=== PATIENT | male | born 1955 | race Caucasian/White ===

== ENCOUNTER 2018-09-28 06:20 | Day surgery (SDC) | payer OTHER ==
[2018-09-27 14:36] VITALS: BP 142/84
[~2018-09-28] VITALS: Ht 182.9 cm; Wt 96.1 kg
[2018-09-28] VITALS (18 sets, daily range): BP systolic 126–143; BP diastolic 70–89
[~2018-09-28 06:20] MED LIST: ATORVASTATIN PO; BISOPROLOL PO; TRAM50TA4 PO
[2018-09-28] MEDS ORDERED: LACTATED RINGERS 1000ML 1,000 ML IV ONE (06:46)
[2018-09-28] MEDS ORDERED: CEFAZOLIN SODIUM 1 GM VIAL ONE ×2 (06:46→09:03)
[2018-09-28] MEDS: CEFAZOLIN SODIUM 1 GM VIAL IVP ONE ×2 (06:54→09:55)
[2018-09-28] MEDS ORDERED: DEXAMETHASONE SOD PHOSPHATE 10MG/ML 1ML VIAL ONE (07:09)
[2018-09-28] MEDS ORDERED: SUCCINYLCHOLINE 200MG/10ML SYR ONE ×2 (07:10→08:51)
[2018-09-28] MEDS ORDERED: LIDOCAINE PF 2% 5ML ABBOJECT ONE ×2 (07:10→10:24)
[2018-09-28] MEDS ORDERED: GLYCOPYRROLATE 1 MG/5 ML SYRINGE ONE (07:12)
[2018-09-28] MEDS ORDERED: NEOSTIGMINE 5MG/5ML SYR IV ONE (07:12)
[2018-09-28] MEDS ORDERED: ROCURONIUM 10MG/1ML SYR 10 MG/ML ML ONE (07:12)
[2018-09-28] MEDS ORDERED: PROPOFOL 10 MG/ML 20ML VIAL IV ONE ×2 (07:12→10:24)
[2018-09-28] MEDS ORDERED: MIDAZOLAM HCL 1 MG/ML 2ML VIAL ONE (07:12)
[2018-09-28] MEDS ORDERED: ONDANSETRON HCL 4 MG/2 ML VIAL ONE (07:12)
[2018-09-28] MEDS ORDERED: FENTANYL CITRATE PF 50 MCG/1 ML 2ML VIAL ONE ×2 (07:13→08:52)
[2018-09-28] MEDS ORDERED: ROPIVACAINE 0.5% 5MG/ML 30ML IJ ONE (08:43)
[2018-09-28] MEDS ORDERED: LIDOCAINE HCL 4% LTA SOL 4 ML VIAL ONE (08:49)
[2018-09-28] MEDS ORDERED: LIDOCAINE HCL 2% JELLY 5 ML ONE (08:50)
[2018-09-28] MEDS ORDERED: EPHEDRINE SULFATE 50 MG/ML AMPULE ONE (10:08)
[2018-09-28] MEDS ORDERED: LIDOCAINE HCL MPF 1% 5ML VIAL ONE (10:21)
[2018-09-28] MEDS ORDERED: CEPH500B PO (10:53)
[2018-09-28] MEDS ORDERED: NAPR-1023 PO (10:53)
[2018-09-28] MEDS ORDERED: TYL3 PO (10:53)
[2018-09-28] MEDS ORDERED: KETOROLAC TROMETHAMINE 30MG/ML ONE (11:27)
--- NOTE | 2018-09-28 12:00 | NUR ---
RECEIVED AWAKE ALERT ,NO COMPLAINTS,,,,LT ARM WITH JORGE BANDAGE INTACT WITH FINGERS EXPOSED WARM TO TOUCH ABLE TO WIGGLE FINGERS ,CAPILLARY REFILL ,,
--- NOTE | 2018-09-28 12:45 | NUR ---
SLING APPLIED TO LT ARM,INSTRUCTED HOW TO CHECK FOR CAPILLARY REFILL,,AND KEEP ELEVATED AT ALL TIMES AND WHEN AMBULATES TO WEAR SLING ,VERBALIZES UNDERSTANDING,,WAITING FOR SON TO TAKE HIM HOME
--- NOTE | 2018-09-28 13:36 | NUR ---
TO CAR VIA W/C ,,,WITH SLING IN PLACE ,ABLE TO WIGGLE FINGERS ,WARM TO TOUCH,NO SWELLING NOTED,VERBALIZES UNDERSTANDING ON HOW TO CHECK FOR CIRCULATION Addendum: 09/28/18 at 1546 by MOON GALICIA LVN LVN TIME OF DISCHARGE WAS 1330
== END 2018-09-28 13:30 | disposition home or self-care (01) ==
LOC: DAH 06:20
PROVIDERS: ATTEND Orthopaedic Surgery
DX: G56.02 Carpal tunnel syndrome, left upper limb (principal); I10 Essential (primary) hypertension; E78.5 Hyperlipidemia, unspecified; M54.5 Low back pain; Z68.30 Body mass index [BMI] 30.0-30.9, adult; G40.89 Other seizures; Z98.890 Other specified postprocedural states; Z79.899 Other long term (current) drug therapy; Z82.49 Family history of ischemic heart disease and other diseases of the circulatory system
CPT/HCPCS: 64721; A4215; A4218; A4649; A4930; A6223; J0330 ×2; J0690 ×2; J1100; J1885; J2001 ×2; J2250; J2405; J2704 ×2; J2710; J2795; J3010 ×2; J3490 ×3; J7120

== ENCOUNTER → 2020-11-20 | Outpatient (CLI) | payer MEDICARE ==
[~2020-11-20] MED LIST changes: +CEPH500B PO; +NAPR-1023 PO; -TRAM50TA4 PO; +TYL3 PO
== END | disposition home or self-care (01) ==
LOC: RAH 11-16 14:36
PROVIDERS: ATTEND Internal Medicine
DX: M47.812 Spondylosis without myelopathy or radiculopathy, cervical region (principal); M48.02 Spinal stenosis, cervical region; M50.31 Other cervical disc degeneration, high cervical region
CPT/HCPCS: 72141

== ENCOUNTER 2021-01-10 22:21 | Observation (INO) | payer MEDICARE ==
[~2021-01-10] VITALS: Ht 182.9 cm; Wt 87.5 kg
[2021-01-10 23:08] LABS: APPEARANCE,URINE Clear (CLEAR); BILIRUBIN,URINE Negative (NEGATIVE); COLOR,URINE Yellow (YELLOW); GLUCOSE, URINE (UA) Negative (NEGATIVE); KETONES,URINE 15 mg/dL (NEGATIVE); LEUKOCYTE ESTERASE ,URINE Negative (NEGATIVE); NITRATE,URINE Negative (NEGATIVE); OCCULT BLOOD,URINE Negative (NEGATIVE); PH,URINE 5.5 (5.0-8.0); PROTEIN,URINE POS 2+ mg/dL (NEGATIVE)
[2021-01-10 23:23] LABS: BASOPHILS % (AUTO) 0.1 % (0.0-5.0); EOSINOPHILS % (AUTO) 1.1 % (0.0-8.0); HEMATOCRIT 40.5 % (42-54); LYMPHOCYTES % (AUTO) 19.6 % (21.0-51.0); MEAN CORPUSCULAR HGB CONC 32.8 g/dL (32.0-36.0); MEAN CORPUSCULAR VOLUME 91.4 fL (79-99); MONOCYTES % (AUTO) 14.2 % (3.0-13.0); NEUTROPHILS % (AUTO) 64.7 % (40.0-77.0); PLATELET COUNT (AUTO) 196 K/uL (130-400); RED BLOOD CELL COUNT(AUTO) 4.43 MIL/uL (4.50-6.20); RED CELL DISTRIBUTION WIDTH 12.9 % (11.0-15.5); WHITE BLOOD COUNT (AUTO) 7.3 K/uL (4.8-10.8)
[2021-01-10] MEDS ORDERED: MECLIZINE HCL 25 MG TABLET ONE (23:25)
[2021-01-10] MEDS ORDERED: ONDANSETRON HCL 4 MG/2 ML VIAL ONE (23:26)
[2021-01-10] MEDS ORDERED: CYCLOBENZAPRINE HCL 10 MG TABLET ONE (23:26)
[2021-01-10] MEDS ORDERED: HYDROCODONE/ACETAMINOPHEN 10/325 MG TAB ONE (23:27)
[2021-01-10 23:30] LABS: POTASSIUM 3.5 mmol/L (3.5-5.1)
[2021-01-10 23:39] LABS: ALBUMIN 3.8 g/dL (3.5-5.0); BILIRUBIN,TOTAL 0.5 mg/dL (0.2-1.0); TOTAL PROTEIN, SERUM 7.8 g/dL (6.0-8.3)
[2021-01-11 00:20] LABS: CRP QUANTITATIVE 6.1 mg/L (0.00-9.0); MAGNESIUM 1.9 mg/dL (1.80-2.40)
[2021-01-11] MEDS ORDERED: IOHEXOL-350 50ML VIAL IV ONE (09:43)
[2021-01-11 17:00] VITALS: BP 130/75
[2021-01-11] MEDS ORDERED: ATOR10 PO (17:03)
[2021-01-11] MEDS ORDERED: METF-444 PO (17:03)
[2021-01-11] MEDS ORDERED: BISO5POW MC (17:03)
[2021-01-11 19:25] VITALS: BP 143/73
[2021-01-11 23:27] VITALS: BP 157/72
[2021-01-12 03:39] VITALS: BP 146/81
[2021-01-12 08:00] VITALS: BP 160/81
[2021-01-12] MEDS: METFORMIN HCL 500 MG TABLET PO SCH (08:31)
[2021-01-12] MEDS: ATENOLOL 50 MG TABLET PO SCH (08:32)
[2021-01-12] MEDS: ACETAMINOPHEN 325 MG TAB PO PRN ×2 (09:35→19:59)
[2021-01-12 12:00] VITALS: BP 134/78
[2021-01-12] MEDS: HYDROCODONE/ACETAMINOPHEN 5/325 MG TAB PO PRN (14:29)
[2021-01-12 16:00] VITALS: BP 128/82
[2021-01-12 20:00] VITALS: BP 118/71
[2021-01-12] MEDS ORDERED: ATORVASTATIN CALCIUM 20 MG TABLET PO SCH (21:00)
[2021-01-13] VITALS: BP 135/79
[2021-01-13] MEDS: ACETAMINOPHEN 325 MG TAB PO PRN (03:40)
[2021-01-13 04:00] VITALS: BP 149/80
[2021-01-13] MEDS ORDERED: MORPHINE SULFATE 2 MG/ML 1ML SYG IVP PRN (07:45)
[2021-01-13 07:54] VITALS: BP 140/78
[2021-01-13] MEDS: ATENOLOL 50 MG TABLET PO SCH (10:24)
[2021-01-13] MEDS: METFORMIN HCL 500 MG TABLET PO SCH (10:24)
[2021-01-13] MEDS: HYDROCODONE/ACETAMINOPHEN 5/325 MG TAB PO PRN (10:28)
[2021-01-13 11:54] VITALS: BP 155/88
[2021-01-13 16:48] VITALS: BP 145/83
== END 2021-01-13 18:15 | disposition home or self-care (01) ==
LOC: EDH 22:21 → EDHIP 01-11 04:32 → OBSVTOIN 01-11 04:32 → INTOOBSV 01-11 04:32 → 3AH 01-11 16:47
PROVIDERS: ADMIT Internal Medicine; ATTEND Internal Medicine
DX: M48.02 Spinal stenosis, cervical region (principal); M51.37 Other intervertebral disc degeneration, lumbosacral region; E11.9 Type 2 diabetes mellitus without complications; E78.5 Hyperlipidemia, unspecified; I10 Essential (primary) hypertension; E78.00 Pure hypercholesterolemia, unspecified; G89.29 Other chronic pain; Z87.828 Personal history of other (healed) physical injury and trauma; Z96.82 Presence of neurostimulator; Z98.1 Arthrodesis status; Z79.84 Long term (current) use of oral hypoglycemic drugs; Z79.899 Other long term (current) drug therapy
CPT/HCPCS: 36415; 70450; 70460; 71045; 72146; 72148; 80053; 81003; 83735; 84484; 85025; 86140; 93005; 99285; G0378 ×61; J2405; Q9967

== ENCOUNTER → 2022-03-22 | Outpatient (CLI) | payer MEDICARE ==
[~2022-03-22] MED LIST changes: +ATOR10 PO; -ATORVASTATIN PO; +BISO5POW MC; -BISOPROLOL PO; -CEPH500B PO; +METF-444 PO; -NAPR-1023 PO; -TYL3 PO
== END | disposition home or self-care (01) ==
LOC: RAH 13:42
PROVIDERS: ATTEND Orthopaedic Surgery
DX: M48.061 Spinal stenosis, lumbar region without neurogenic claudication (principal); M54.16 Radiculopathy, lumbar region
CPT/HCPCS: 72148

== ENCOUNTER 2022-05-16 10:45 | Emergency (ER) | payer MEDICARE ==
[~2022-05-16] VITALS: Ht 182.9 cm; Wt 88.9 kg
[2022-05-16 10:47] VITALS: BP 156/97
[2022-05-16] MEDS ORDERED: KETOROLAC 60 MG VIAL (30MG/ML) IM STA (11:19)
[2022-05-16] MEDS ORDERED: NAPR-1113 PO (11:32)
== END 2022-05-16 11:41 | disposition home or self-care (01) ==
LOC: EDH 10:45
DX: S90.31XA Contusion of right foot, initial encounter (principal); E11.9 Type 2 diabetes mellitus without complications; E78.00 Pure hypercholesterolemia, unspecified; I10 Essential (primary) hypertension; Z79.84 Long term (current) use of oral hypoglycemic drugs; Z79.899 Other long term (current) drug therapy; Z98.890 Other specified postprocedural states; W01.0XXA Fall on same level from slipping, tripping and stumbling without subsequent striking against object, initial encounter; Y93.89 Activity, other specified; Y92.89 Other specified places as the place of occurrence of the external cause; Y99.8 Other external cause status
CPT/HCPCS: 99283; 73630; 96372; J1885

== ENCOUNTER → 2022-06-03 | Outpatient (CLI) | payer MEDICARE ==
[~2022-06-03] MED LIST changes: +GADOTERATE MEGLUMINE 10 MMOL/20 ML VIAL IV ONE; +NAPR-1113 PO
== END | disposition home or self-care (01) ==
LOC: RAH 13:17
PROVIDERS: ATTEND Otolaryngology Plastic Surgery within the Head & Neck
DX: I67.82 Cerebral ischemia (principal); H90.3 Sensorineural hearing loss, bilateral
CPT/HCPCS: 70553; A9575

== ENCOUNTER 2023-04-12 11:20 | Emergency (ER) | payer MEDICARE ==
[~2023-04-12] VITALS: Ht 182.9 cm; Wt 91.6 kg
[~2023-04-12 11:20] MED LIST changes: -GADOTERATE MEGLUMINE 10 MMOL/20 ML VIAL IV ONE
[2023-04-12 12:32] LABS: BASOPHILS # (AUTO) 0.03 K/uL (0.00-0.20); BASOPHILS % (AUTO) 0.4 % (0.0-5.0); EOSINOPHILS # (AUTO) 0.16 K/uL (0.00-0.70); EOSINOPHILS % (AUTO) 2.1 % (0.0-8.0); HEMATOCRIT 40.2 % (42-54); IMMATURE GRANULOCYTE ABSOLUTE 0.02 K/uL (0-1); LYMPHOCYTES # (AUTO) 2.1 K/uL (1.0-4.8); LYMPHOCYTES % (AUTO) 26.5 % (21.0-51.0); MEAN CORPUSCULAR HEMOGLOBIN 30.6 pg (27.0-33.0); MEAN CORPUSCULAR HGB CONC 32.8 g/dL (32.0-36.0); MEAN CORPUSCULAR VOLUME 93.3 fL (79-99); MONOCYTES # (AUTO) 0.9 K/uL (0.1-1.0); MONOCYTES % (AUTO) 11.6 % (3.0-13.0); NEUTROPHILS # (AUTO) 4.6 K/uL (1.8-7.7); NEUTROPHILS % (AUTO) 59.1 % (40.0-77.0); PLATELET COUNT (AUTO) 232 K/uL (130-400); RED BLOOD CELL COUNT(AUTO) 4.31 MIL/uL (4.50-6.20); WHITE BLOOD COUNT (AUTO) 7.8 K/uL (4.8-10.8)
[2023-04-12 12:42] LABS: CREATININE 1.2 mg/dL (0.5-1.5); POTASSIUM 4.5 mmol/L (3.5-5.1)
[2023-04-12 12:47] LABS: ALBUMIN 3.7 g/dL (3.5-5.0); BILIRUBIN,TOTAL 0.4 mg/dL (0.2-1.0); TOTAL PROTEIN, SERUM 7.8 g/dL (6.0-8.3)
[2023-04-12] MEDS ORDERED: IOHEXOL-350 75 ML VIAL IV ONE (14:21)
[2023-04-12 14:38] LABS: APPEARANCE,URINE CLOUDY (CLEAR); BILIRUBIN,URINE NEGATIVE (NEGATIVE); COLOR,URINE LIGHT-ORANGE (YELLOW); GLUCOSE, URINE (UA) NEGATIVE (NEGATIVE); KETONES,URINE NEGATIVE (NEGATIVE); LEUKOCYTE ESTERASE ,URINE NEGATIVE Leu/uL (NEGATIVE); NITRATE,URINE NEGATIVE (NEGATIVE); OCCULT BLOOD,URINE LARGE (NEGATIVE); PH,URINE 5.5 (5.0-8.0); PROTEIN,URINE 70 mg/dL (NEGATIVE); UROBILINOGEN,URINE 0.2 mg/dL (0.2-1.0)
[2023-04-12 14:41] LABS: ADD UA MICROSCOPIC YES
[2023-04-12 14:43] LABS: BACTERIA,URINE RARE /HPF (None Seen); MUCUS,URINE FEW LPF (None Seen); OTHER CASTS, URINE 5 /LPF (None Seen); RBC,URINE TNTC /HPF (0-1); UNCLASSIFIED CRYSTAL 20 /HPF (None Seen); WBC,URINE 26-50 /HPF (0-1); YEAST,URINE BUDDING FEW /HPF (None Seen)
[2023-04-12 15:30] VITALS: BP 156/79; PULSE 75; RESP 18; O2SAT 98
== END 2023-04-12 15:34 | disposition home or self-care (01) ==
LOC: EDH 11:20
DX: N30.90 Cystitis, unspecified without hematuria (principal); R31.9 Hematuria, unspecified; E11.9 Type 2 diabetes mellitus without complications; E78.00 Pure hypercholesterolemia, unspecified; I10 Essential (primary) hypertension; Z79.84 Long term (current) use of oral hypoglycemic drugs; Z79.899 Other long term (current) drug therapy
CPT/HCPCS: 99285; 74177; 82150; 80053; 85025; 87088; 81001; 36415; Q9967

== ENCOUNTER → 2023-06-02 | Outpatient (CLI) | payer MEDICARE | END | disposition home or self-care (01) | LOC: RAH 10:11 | PROVIDERS: ATTEND Internal Medicine | DX: M48.02 Spinal stenosis, cervical region (principal); M50.90 Cervical disc disorder, unspecified, unspecified cervical region; M54.9 Dorsalgia, unspecified | CPT/HCPCS: 72141 ==

== ENCOUNTER 2024-05-31 21:35 | Emergency (ER) | payer MEDICARE ==
[~2024-05-31] VITALS: Ht 182.9 cm; Wt 90.7 kg
[2024-05-31 21:50] LABS: BASOPHILS # (AUTO) 0.03 K/uL (0.00-0.20); BASOPHILS % (AUTO) 0.4 % (0.0-5.0); EOSINOPHILS # (AUTO) 0.01 K/uL (0.00-0.70); EOSINOPHILS % (AUTO) 0.1 % (0.0-8.0); HEMATOCRIT 37.5 % (42-54); IMMATURE GRANULOCYTE ABSOLUTE 0.02 K/uL (0-1); LYMPHOCYTES # (AUTO) 1.6 K/uL (1.0-4.8); LYMPHOCYTES % (AUTO) 19.9 % (21.0-51.0); MEAN CORPUSCULAR HEMOGLOBIN 32.2 pg (27.0-33.0); MEAN CORPUSCULAR HGB CONC 34.1 g/dL (32.0-36.0); MEAN CORPUSCULAR VOLUME 94.5 fL (79-99); MONOCYTES # (AUTO) 1.1 K/uL (0.1-1.0); MONOCYTES % (AUTO) 13.9 % (3.0-13.0); NEUTROPHILS # (AUTO) 5.4 K/uL (1.8-7.7); NEUTROPHILS % (AUTO) 65.5 % (40.0-77.0); PLATELET COUNT (AUTO) 232 K/uL (130-400); RED BLOOD CELL COUNT(AUTO) 3.97 MIL/uL (4.50-6.20); RED CELL DISTRIBUTION WIDTH 14.7 % (11.0-15.5); WHITE BLOOD COUNT (AUTO) 8.2 K/uL (4.8-10.8)
[2024-05-31] MEDS: LACTATED RINGERS 1000ML 1,000 ML IV ONE (21:51)
[2024-05-31 22:02] LABS: INR 1.14 (0.85-1.15); PROTHROMBIN TIME 12.2 SEC (9.6-11.6)
[2024-05-31 22:03] LABS: CREATININE 1.5 mg/dL (0.5-1.3); PARTIAL THROMBOPLASTIN TIME 26.3 SEC (26.3-35.5); POTASSIUM 4.1 mmol/L (3.5-5.1)
[2024-05-31 22:10] LABS: MAGNESIUM 1.7 mg/dL (1.80-2.40)
[2024-05-31] MEDS: MAGNESIUM OXIDE 400 MG TABLET PO ONE (23:31)
[2024-06-01] MEDS: 0.9%NACL 1000ML 1,000 ML IV ONE (00:06)
[2024-06-01 01:42] VITALS: BP 151/76; PULSE 66; RESP 18; TEMP 97.9; O2SAT 100
== END 2024-06-01 01:45 | disposition home or self-care (01) ==
LOC: EDH 21:35
DX: T67.5XXA Heat exhaustion, unspecified, initial encounter (principal); E83.42 Hypomagnesemia; E11.9 Type 2 diabetes mellitus without complications; E78.00 Pure hypercholesterolemia, unspecified; I10 Essential (primary) hypertension; Z98.890 Other specified postprocedural states; Z79.899 Other long term (current) drug therapy; Z79.84 Long term (current) use of oral hypoglycemic drugs; X32.XXXA Exposure to sunlight, initial encounter; Y93.89 Activity, other specified; Y92.89 Other specified places as the place of occurrence of the external cause; Y99.8 Other external cause status
CPT/HCPCS: 99285; 96360; 71045; 82550; 83735; 84484; 80048; 85025; 85610; 85730; 36415; 93005; 96361; J7120; J7030

== ENCOUNTER 2025-01-10 17:13 | Emergency (ER) | payer MEDICARE ==
[~2025-01-10] VITALS: Ht 182.9 cm; Wt 90.7 kg
[2025-01-10] MEDS ORDERED: DIPH,PERTUSS(ACELL),TET VAC/PF 0.5 ML VIAL IM ONE (17:30)
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
--- NOTE | 2025-01-10 18:01 | HMCIMG ---
LEFT THUMB RADIOGRAPHS - 3 VIEWS INDICATION: Left thumb injury COMPARISON: None FINDINGS: AP, lateral, and oblique views. No fracture or subluxation identified. No intrinsic osseous abnormality detected. No radiopaque foreign body noted. IMPRESSION: No evidence for fracture or subluxation.
[2025-01-10] MEDS: LIDOCAINE HCL 1% 20 ML VIAL INJ SCH (18:30)
[2025-01-10] MEDS ORDERED: CEPH500B PO (18:38)
[2025-01-10] MEDS: acetaMINOPHEN 500 MG TABLET PO SCH (19:00)
[2025-01-10] MEDS: cefTRIAXone 1G VIAL IM SCH (19:00)
[2025-01-10] MEDS: NEOMY SULF/BACITRA/POLYMYXIN B 1 EACH PACKET TP SCH (19:00)
[2025-01-10] MEDS: teTANUS/diphthERIA TOXOID [ADULT] 0.5 ML VIAL IM ONE (19:03)
[2025-01-10 19:25] VITALS: BP 112/68; PULSE 85; RESP 18; TEMP 98.8; O2SAT 98
== END 2025-01-10 19:27 | disposition home or self-care (01) ==
LOC: EDH 17:13
DX: S61.012A Laceration without foreign body of left thumb without damage to nail, initial encounter (principal); E11.9 Type 2 diabetes mellitus without complications; E78.00 Pure hypercholesterolemia, unspecified; I10 Essential (primary) hypertension; Z79.84 Long term (current) use of oral hypoglycemic drugs; Z79.899 Other long term (current) drug therapy; W22.8XXA Striking against or struck by other objects, initial encounter; Y93.89 Activity, other specified; Y92.89 Other specified places as the place of occurrence of the external cause; Y99.8 Other external cause status
CPT/HCPCS: 99283; 73140; 12001; 96372; J0696; 90715

== ENCOUNTER 2025-04-26 12:33 | Emergency (ER) | payer MEDICARE ==
[~2025-04-26] VITALS: Ht 182.9 cm; Wt 88.5 kg
[~2025-04-26 12:33] MED LIST changes: +AREDS PO; -ATOR10 PO; +ATOR20TA65 PO; -BISO5POW MC; +MAGN200T8 PO; -METF-444 PO; -NAPR-1113 PO
--- NOTE | 2025-04-26 12:56 | ERN ---
General Chief Complaint: Wrist Pain/Injury Stated Complaint: WRIST PAIN Time Seen by MD: 12:35 Source: patient History of Present Illness Initial Comments Patient is a 69-year-old male coming in complaining of left wrist pain. Patient states that he was working out in the rash physically and states that this left wrist started hurting more. No trauma reported. Allergies: Coded Allergies: No Known Allergies (Unverified Allergy, Unknown, 09/27/18) Home Meds Reported Medications [Areds] No Conflict Check, 1 TAB PO DAILY 04/09/25 Magnesium Oxide (Mag-Oxide) 200 Mg Magnesium Tablet, 1 TAB PO DAILY for 30 Days, #30 TAB 0 Refills 04/09/25 Atorvastatin Calcium (Atorvastatin Calcium) 20 Mg Tablet, 1 TAB PO HS 04/09/25 Past Medical History Past Medical History: A-Fib, Diabetes-Type II, High Cholesterol, Hypertension Medical History Other: [place] Past Surgical History: Other Surgical History Other: BACK, NECK, RT FACE Social History Social History: Lives with family ROS Dictation CONSTITUTIONAL: No chills, no fever, no weakness, no diaphoresis, no malaise. HEAD/FACE: No signs of trauma. EENT: No eye pain, no blurred vision, no tearing, no double vision, no ear pain, no ear discharge, no nose pain, no nasal congestion, no throat pain, no throat swelling, no mouth pain. RESPIRATORY: No cough, no orthopnea, no SOB, no stridor, no wheezing. CARDIOVASCULAR: No chest pain, no edema, no palpitations, no syncope. GASTROINTESTINAL/ABDOMINAL: No abdominal pain, no constipation, no diarrhea, no nausea, no vomiting. GENITOURINARY: No abnormal discharge, no dysuria, no frequent urination, no hematuria. No complaints of pain in the genitals. MUSCULOSKELETAL: No back pain, no gout, no joint pain, joint swelling, muscle pain, no muscle stiffness, no neck pain. INTEGUMENTARY: No change in color, no change in hair/nails, no dryness, no lesion, no lumps, no rash. NEUROLOGICAL/PSYCH: No anxiety, not depressed, no emotional problem, no headache, no numbness, no pre-existing deficit, no history of seizures, no tremors, no weakness. HEMATOLOGIC/LYMPHATIC: Not anemic, no history of blood clots, no apparent bleeding, no bruising, glands not swollen. All Systems Negative, Except as Noted. Physical Exam Physical Exam Dictation VITAL SIGNS: Reviewed. GENERAL APPEARANCE: Alert, oriented x3, no acute distress, obese. HEAD AND FACE: Non-traumatic. EYES: PERRL, pink conjunctivas, eyelid no trauma, anterior chamber clear. EARS: Pinnas intact and no signs of trauma or erythema. Ear canals clear and no discharge. TMs no erythema. NOSE: No discharge, no bleeding. OROPHARYNX: Mouth normal, teeth no caries, tongue pink. Pharynx clear, no erythema. Tonsils no exudates, no abscesses noted. Mucous membrane moist. NECK: Supple, non-tender, no thyromegaly, no masses, no JVD, no bruits. BREAST: Deferred. CHEST: No tenderness, no crepitus, no paradoxical movement, no retractions. LUNGS: Clear, well-ventilated, symmetric, no rales, no wheezing, no rhonchi, no stridor, good breath sounds bilaterally. HEART: Regular rate, regular rhythm, no murmur, no gallops. VASCULAR: No peripheral edema. ABDOMEN: Soft, positive bowel sounds, nondistended, no guarding, nontender, no rebound, no masses no hepatomegaly, no splenomegaly, no Colbert's sign, no hernias. RECTAL: Deferred. GENITAL: Deferred. NEUROLOGICAL: Normal speech, gross motor function intact, gross sensory function intact. MUSCULOSKELETAL: Neck nontender, full range of motion, back nontender, full range of motion. EXTREMITIES: Nontender, full range of motion. Left wrist tenderness on palpation SKIN: Color pink, dry, no turgor, no rash, no lacerations, no abrasions, no contusions. LYMPHATICS: Deferred. Results Laboratory and Microbiology Labs Reviewed?: Yes EKG/XRAY/US/CT/MRI X-RAY Comment REASON: pain ORDERING PHYSICIAN: AMAURY GARCIA MD PROCEDURE: WRST 3V LT - WRIST COMP 3+VWS LT EXAM: CR Left Wrist, 3 View. CLINICAL HISTORY: pain COMPARISON: None provided. FINDINGS: BONES: No acute fracture or aggressive appearing osseous lesion. Old, ununited ulnar styloid process fracture. JOINTS: No dislocation. The carpal bones demonstrate normal alignment. 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 SOFT TISSUES: The soft tissues are unremarkable. IMPRESSION: 1. No acute osseous injury. /[place] DICTATED BY: SORIN LEPE Jr., MD DATE: 04/26/251457 ELECTRONICALLY SIGNED BY: SORIN LEPE Jr., MD DATE: 04/26/251457 MDM MDM: Differential diagnosis: Rationale: Tests considered and ordered secondary to shared decision making include: Previous outside records reviewed: Old ER visits. Risk of complication and/or morbidity or mortality of patient management: None Medications-Per medication reconciliation Need for hospitalization: Patient does not meet criteria for hospitalization. Need for emergency major/minor surgery: No There are no social concerns with this patient. Prescription drug management Prescriptions will include symptomatic care Patient's prior external medical records from other ER visits were reviewed by me as indicated. Prior testing and results from previous visits were reviewed. Prior tests were taken into account with medical decision making and resource utilization, independent historian/historians were used to obtain complete medical history. I independently interpreted the test that were performed, results were reviewed by me and considered findings on radiology if ordered. Medical management and examination interpretation discussions were had by me with other qualified healthcare professionals as indicated for the patient's care. ED Course Orders Procedure Category Date Status Time Wrist Comp 3+Vws Lt RAD 04/26/25 Resulted 12:40 Ketorolac PHA 04/26/25 Complete Tromethamine 30mg/Ml 13:00 Orphenadrine Citrate PHA 04/26/25 Complete (Norflex) 13:00 Current Medications Medications (Trade) Dose Ordered Sig/Grazyna Route PRN Reason Start Time Stop Time Status Last Admin Dose Admin Ketorolac Tromethamine (toRADol) 30 mg ONCE ONCE IM 04/26/25 13:00 04/26/25 13:01 DC 04/26/25 13:20 Orphenadrine Citrate (Norflex) 60 mg ONCE ONCE IM 04/26/25 13:00 04/26/25 13:01 DC 04/26/25 13:20 Vital Signs Date Time Temp Pulse Resp B/P (MAP) Pulse Ox O2 Delivery O2 Flow Rate FiO2 04/26/25 12:47 98.2 76 18 154/79 98 Room Air* 0 21 04/26/25 12:37 98.2 76 18 154/79 98 12 50 noon patient was signed out to me by a.m. physician Mr. Degroot is a 69-year-old delightful male who apparently woke up this morning with pain in his left wrist however the pain has been going on for the past few days and he came into the ER for evaluation. He stated that [place] and did a lot of physical labor but used both his hence however the pain that was experienced was mostly on the left wrist. No fevers chills no redness. He did not hear a pop. Temperature 98.2 pulse 76 respirations 18 blood pressure 154/79 with a pulse oximetry of 98% on room air His chronic medical problems include diabetes mellitus, hypertension, hypercholesterolemia and atrial fibrillation. On exam the left wrist minimally swollen and mild tenderness with a movement. Pulses are intact no tingling or numbness no obvious deformity Reviewed x-ray of the left wrist-no acute fractures or dislocations noted. I updated the patient on the x-ray findings that it may simply be a contusion or overuse and recommended rest and wrists splint-being provided here and PRN pain medicines Follow up with PCP this is the pain does not improve. He verbalized full understanding. DX & DISP Disposition: Discharge Departure Impression: Primary Impression: Contusion of left wrist Additional Impression: Left wrist pain Condition: Stable Scripts Ketorolac Tromethamine (Toradol) 10 Mg Tab 10 MG PO QID for pain for 5 Days, #20 TAB 0 Refills Prov: PEPPER CONNER MD 04/26/25 Orphenadrine Citrate (Norflex) 100 Mg Srtab 1 TAB PO [id number] PRN for pain for 5 Days, #10 TAB 0 Refills Prov: PEPPER CONNER MD 04/26/25 Additional Instructions: Patient and the caregiver have been informed of all the diagnostic tests and the imaging conducted during the today's visit to the emergency room and has verbalized understanding of the results I have personally reviewed and interpreted all diagnostic exams performed here in the ER today as well as the vital signs documented by the nursing staff. The patient is now being discharged to home and should follow up with the primary care physician or the specialist as directed by the ER staff. Follow-up with primary care provider in 1 to 2 days. Take medications as directed here in the emergency room. Okay to continue home medications unless otherwise discussed during your visit in the emergency room today. Return to your nearest emergency room if symptoms worsen or if there is no improvement. Call 911 if you need immediate assistance. Take Tylenol or Motrin [id number] as needed and if no contraindications are present. Increase oral hydration. A wound culture or urine culture was ordered here in the emerg ency room department please follow-up with primary care provider and advise them to get repeat ports from our facility. If you had any Mina wrap/splints that were applied here, please do not remove them until you see your primary care or specialty. Adverse effects of medications increased risk of bleeding were discussed with the patient and he verbalized understanding Referrals: CHELLY ARRIAGA MD (PCP) AMAURY GARCIA MD Apr 26, 2025 12:56 PEPPER CONNER MD Apr 26, 2025 14:09
[2025-04-26] MEDS: ORPHENADRINE 60MG/2ML IM ONE (13:20)
--- NOTE | 2025-04-26 13:58 | HMCIMG ---
EXAM: CR Left Wrist, 3 View. CLINICAL HISTORY: pain COMPARISON: None provided. FINDINGS: BONES: No acute fracture or aggressive appearing osseous lesion. Old, ununited ulnar styloid process fracture. JOINTS: No dislocation. The carpal bones demonstrate normal alignment. 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 SOFT TISSUES: The soft tissues are unremarkable. IMPRESSION: 1. No acute osseous injury. /[place]
[2025-04-26] MEDS ORDERED: KETO10 PO (14:19)
[2025-04-26] MEDS ORDERED: ORPH100 PO (14:19)
[2025-04-26 14:20] VITALS: BP 145/75; PULSE 72; RESP 18; TEMP 98.2; O2SAT 99
== END 2025-04-26 14:41 | disposition home or self-care (01) ==
LOC: EDH 12:33
DX: S60.212A Contusion of left wrist, initial encounter (principal); M25.532 Pain in left wrist; E11.9 Type 2 diabetes mellitus without complications; E78.00 Pure hypercholesterolemia, unspecified; I10 Essential (primary) hypertension; I48.91 Unspecified atrial fibrillation; X58.XXXA Exposure to other specified factors, initial encounter; Y93.89 Activity, other specified; Y92.89 Other specified places as the place of occurrence of the external cause; Y99.8 Other external cause status
CPT/HCPCS: 99284; 73110; 96372 ×2; J1885; J2360

== ENCOUNTER 2025-05-03 14:14 | Emergency (ER) | payer MEDICARE ==
[~2025-05-03] VITALS: Ht 182.9 cm; Wt 88.5 kg
[~2025-05-03 14:14] MED LIST changes: +KETO10 PO; +ORPH100 PO
--- NOTE | 2025-05-03 14:54 | EKG ---
[facility] Test Date: 2025-05-03 Test Time: 14:50:26 Pat Name: JACQUELINE MONTOYA Department: ED Room: Gender: M Cougar Hunter: [id number] : 1955 Requested By: LAZ PITTMAN Order Number: [id number] Reading MD: Cooper Browning Measurements Intervals [place] Rate: 71 P: 0 ID: [id number] QRS: 11 QRSD: 76 T: 22 QT: 390 QTc: 424 Interpretive Statements Sinus rhythm Atrial premature complex Compared to ECG 04/08/2025 12:31:48 Atrial premature complex(es) now present Atrial fibrillation no longer present Electronically Signed On 05-03-2025 15:05:17 CDT by Cooper Browning Please click the below link to view image of tracing.
--- NOTE | 2025-05-03 15:05 | NUR ---
PATIENT IS S/P FALL ON MONDAY , PATIENT STATE SHE IS ON WARFARIN BUT DID NOT HIS HER HEAD, PATIENT RESTING IN BED, CALL LIGHT IN REACH
--- NOTE | 2025-05-03 16:26 | ERN ---
ED Note History of Present Illness Stated Complaint: RIB CAGE PAIN Chief Complaint: Rib Pain Time Seen by MD: 14:19 Time Seen by Midlevel: 14:19 Dictation: The Patient is a 69-year-old male with a history of hypertension, diabetes who presents to the emergency department with complaints of right lower rib pain onset Monday after an accidental fall. Patient reports he stood up from his sofa and his right foot fell asleep which usually happens to him when he has prolonged sitting causing him to fall to his right side. Patient reports he used his arm to break the fall and his hand dig into his rib area. Patient den ies any head trauma, denies any LOC, denies any dizziness. Denies any other injuries. Patient reports he has been ambulating without issues. Allergies: Coded Allergies: No Known Allergies (Unverified Allergy, Unknown, 09/27/18) Home Meds Active Scripts Meloxicam (Meloxicam) 15 Mg Tablet, 15 MG PO DAILY PRN for PAIN for 10 Days, #10 TAB Prov:SOLA MERRILL DO 05/03/25 Hydrocodone/Acetaminophen (Hydrocodon-Acetaminophen 5-325) 5 Mg-325 Mg Tablet, 1 TAB PO TIDP PRN for pain for 30 Days, #30 TAB 0 Refills Prov:SOLA MERRILL DO 05/03/25 Lidocaine (Lidocaine) 4 % Adh..patch, 1 PATCH TP DAILY for 10 Days, #10 PATCH 0 Refills Prov:LAZ PITTMAN MARGIN TRIMMER 05/03/25 Ketorolac Tromethamine (Toradol) 10 Mg Tab, 10 MG PO QID for pain for 5 Days, #20 TAB 0 Refills Prov:PEPPER CONNER MD 04/26/25 Orphenadrine Citrate (Norflex) 100 Mg Srtab, 1 TAB PO [id number] PRN for pain for 5 Days, #10 TAB 0 Refills Prov:PEPPER CONNER MD 04/26/25 Reported Medications [Areds] No Conflict Check, 1 TAB PO DAILY 04/09/25 Magnesium Oxide (Mag-Oxide) 200 Mg Magnesium Tablet, 1 TAB PO DAILY for 30 Days, #30 TAB 0 Refills 04/09/25 Atorvastatin Calcium (Atorvastatin Calcium) 20 Mg Tablet, 1 TAB PO HS 04/09/25 Past Medical History Past Medical History: A-Fib, Diabetes-Type II, High Cholesterol, Hypertension Additional Past Medical Hx: MANZANITA Surgical History: Other Surgical History Other: BACK, NECK, RT FACE Social History: Lives with family RN Note Reviewed/Agreed w/PFSH: Yes Review of System Dictation Constitutional: Negative for fever,chills, and weight loss Eyes: Negative for injury, pain,redness, and discharge ENT: Negative for injury,pain or swelling Cardiovascular: Negative for chest pain, palpitations, and edema positive for right rib pain Respiratory: Negative for shortness of breath, cough, and wheezing, Abdomen/GI: Negative for abdominal pain, nausea, vomiting, diarrhea, and constipation Back: Negative for injury and pain : Negative for injury, bleeding and discharge MS/Extremity: Negative for injury and deformity Skin: Negative for rash, and discoloration Neuro: Negative for headache, weakness, numbness, tingling, and seizure Psych: Negative for suicide ideation, homicidal ideation, and hallucinations Initial Vital Sign VS Vital Signs Date Time Temp Pulse Resp B/P (MAP) Pulse Ox O2 Delivery O2 Flow Rate FiO2 05/03/25 14:15 97.7 78 16 133/80 96 Room Air 05/03/25 15:01 0 21 Physical Exam Dictation Vital Signs reviewed General Appearance: Alert, oriented x 3, no acute distress, well developed, nourished. Head and Face: non-traumatic. Eyes: PERRL, pink conjunctivas, eyelid no trauma, anterior chamber with arcus senilis. Ears: Pinnas intact and no signs of trauma or erythema ear canals clear and no discharge TM no erythema Nose: No discharge, no bleeding. Oropharynx: Mouth normal, tongue pink. pharynx clear,no erythema, tonsils no exudates, no abscesses noted, mucous membrane moist Neck: Supple, non-tender, no thyromegaly, no masses, no JVD, no bruits Breast:Deferred Chest no crepitus, no paradoxical movement, no retractions tenderness to mid axillary and anterior right lower ribs, there is no contusions or bruising to area, no open wounds Lungs:Clear, well-ventilated, symmetric, no rales, no wheezing, no rhonchi, no stridor, good breath sounds bilaterally Heart: Regular rate, regular rhythm, no murmur, no gallops Vascular: no peripheral edema, Abdomen: Soft, positive bowel sounds, nondistended, no guarding, nontender, no rebound, no masses no hepatomegaly, no splenomegaly, no Colbert's sign, no hernias. Rectal: Deferred Genital: Deferred Neurological: Normal speech, motor function intact, sensory function intact Musculoskeletal: Neck nontender, full range of motion, back nontender, full range of motion, Extremities: nontender, full range of motion Skin: Color pink, dry, no turgor, no rash, no lacerations, no abrasions, no contusions. Lymphatic: Deferred Results (Laboratory/Radiology) Labs Reviewed?: Yes EKG: (+) rhythm (Sinus rhythm) EKG Comment: Date:05/03/2025 Time:1450 Ventricular rate:71 FL interval:207 QRS duration:76 QT/QTc:390/424 EKG interpretation: Sinus rhythm Reviewed by ED Attending. No STEMI ED Course ED Course Orders Procedure Category Date Status Time Ct Chest W/O Contrast CT 05/03/25 Taken 14:29 12 Lead Ekg Tracing- EKG 05/03/25 Resulted Technical 14:29 Morphine 2mg Syg PHA 05/03/25 Complete (Morphine 2mg Syg) 14:30 Ondansetron 4mg Inj PHA 05/03/25 Complete (Zofran 4mg Inj) 14:30 Lidocaine (Lidocaine PHA 05/03/25 Complete Patch 4%) 16:30 Current Medications Medications (Trade) Dose Ordered Sig/Grazyna Route PRN Reason Start Time Stop Time Status Last Admin Dose Admin Lidocaine (Lidocaine Patch 4%) 1 each ONCE ONCE TP 05/03/25 16:30 05/03/25 16:31 DC 05/03/25 16:29 Morphine Sulfate (morPHINE 2MG SYG) 2 mg ONCE ONCE IVP 05/03/25 14:30 05/03/25 14:31 DC 05/03/25 15:09 Ondansetron HCl (zoFRAN 4MG INJ) 4 mg ONCE ONCE IVP 05/03/25 14:30 05/03/25 14:31 DC 05/03/25 14:57 Vital Signs Date Time Temp Pulse Resp B/P (MAP) Pulse Ox O2 Delivery O2 Flow Rate FiO2 05/03/25 18:36 98.1 69 19 128/80 97 Room Air* 0 21 05/03/25 16:30 98.4 71 16 139/61 96 Room Air* 0 21 05/03/25 15:01 98.1 98 20 132/83 99 Room Air* 0 21 05/03/25 14:15 97.7 78 16 133/80 96 Room Air Medical Decision Making MDM The Patient is a 69-year-old male with a history of hypertension, diabetes who presents to the emergency department with complaints of right lower rib pain onset Monday after an accidental fall. Patient reports he stood up from his sofa and his right foot fell asleep which usually happens to him when he has prolonged sitting causing him to fall to his right side. Patient reports he used his arm to break the fall and his hand dig into his rib area. Patient denies any head trauma, denies any LOC, denies any dizziness. Denies any other injuries. Patient reports he has been ambulating without issues. Denies any blood in urine. CT revealed a single 9th rib fracture. Patient pain controlled. No other injuries. On physical exam patient is in no acute distress, non toxic appearance. We will discharge to follow up with PCP Differential diagnosis: Rib fracture, rib contusion, pneumothorax Need for hospitalization: Patient does not meet criteria for hospitalization. There are no social concerns with this patient. DX & DISP Disposition: Discharge Departure Impression: Primary Impression: Right rib fracture Condition: Stable Scripts Meloxicam (Meloxicam) 15 Mg Tablet 15 MG PO DAILY PRN for PAIN for 10 Days, #10 TAB Prov: SOLA MERRILL DO 05/03/25 Hydrocodone/Acetaminophen (Hydrocodon-Acetaminophen 5-325) 5 Mg-325 Mg Tablet 1 TAB PO TIDP PRN for pain for 30 Days, #30 TAB 0 Refills Prov: SOLA MERRILL DO 05/03/25 Lidocaine (Lidocaine) 4 % Adh..patch 1 PATCH TP DAILY for 10 Days, #10 PATCH 0 Refills Prov: LAZ PITTMAN MARGIN TRIMMER 05/03/25 Additional Instructions: Your Ct showed a rib fracture. Take medications as prescribed. Follow up with your PCP in 1-2 days. If anything worsens please return to ER. FOLLOW-UP WITH PRIMARY CARE PROVIDER IN 1 TO 2 DAYS. TAKE MEDICATIONS DIRECTED HERE IN THE EMERGENCY ROOM. OKAY TO CONTINUE HOME MEDICATIONS UNLESS OTHERWISE DISCUSSED DURING YOUR VISIT IN THE EMERGENCY ROOM TODAY. RETURN TO YOUR NEAREST EMERGENCY ROOM IF SYMPTOMS WORSEN OR IF THERE IS NO IMPROVEMENT. CALL 911 IF YOU NEED IMMEDIATE ASSISTANCE. TAKE TYLENOL [id number] NEEDED AND IF NO CONTRAINDICATIONS ARE PRESENT. INCREASE ORAL HYDRATION. A WOUND CULTURE OR URINE CULTURE WAS ORDERED HERE IN THE EMERGENCY ROOM DEPARTMENT PLEASE FOLLOW-UP WITH PRIMARY CARE PROVIDER AND ADVISE THEM TO GET REPEAT PORTS FROM OUR FACILITY. IF YOU HAD ANY JORGE WRAP/SPLINTS THAT WERE APPLIED HERE, PLEASE DO NOT REMOVE THEM UNTIL YOU SEE YOUR PRIMARY CARE OR SPECIALTY. Referrals: CHELLY ARRIAGA MD (PCP) Time of Disposition: 17:57 I have reviewed the case, and I agree with, Diagnosis and Plan LAZ PITTMAN May 03, 2025 16:26 SOLA MERRILL DO May 03, 2025 18:08
[2025-05-03] MEDS: LIDOCAINE 4% ADH..PATCH TP ONE (16:29)
[2025-05-03] MEDS ORDERED: LIDO1ADH82 TP (17:58)
[2025-05-03] MEDS ORDERED: MELO-108 PO (18:05)
[2025-05-03] MEDS ORDERED: HYDR-4060 PO (18:05)
[2025-05-03 18:36] VITALS: BP 128/80; PULSE 69; RESP 19; TEMP 98; O2SAT 97
--- NOTE | 2025-05-03 18:37 | NUR ---
DC PATIENT WAS DC'D BY LAZ PITTMAN NP I DC'D PATIENTS IV WITH CATH STILL INTACT AND APPLIED 2X2 GAUZE WITH COBAN , I EXPLAINED TO PATIENT TO FOLLOW UP WITH PCP, PROVIDED INFO BASED ON DIAGNOSIS AND ANSWERED ANY FOLLOW UP QUESTIONS PATIENT WAS WHEELCHAIRED OUT OF ED, NO COMPLICATIONS
== END 2025-05-03 18:35 | disposition home or self-care (01) ==
LOC: EDH 14:14
DX: S22.31XA Fracture of one rib, right side, initial encounter for closed fracture (principal); E11.9 Type 2 diabetes mellitus without complications; E78.00 Pure hypercholesterolemia, unspecified; I10 Essential (primary) hypertension; I48.91 Unspecified atrial fibrillation; I49.1 Atrial premature depolarization; W18.39XA Other fall on same level, initial encounter; Y93.84 Activity, sleeping; Y92.89 Other specified places as the place of occurrence of the external cause; Y99.8 Other external cause status
CPT/HCPCS: 99285; 96374; 71250; 96375; 93005; J2270; J2405

== ENCOUNTER 2025-05-14 06:19 | Emergency (ER) | payer MEDICARE ==
[~2025-05-14] VITALS: Ht 182.9 cm; Wt 83.9 kg
[~2025-05-14 06:19] MED LIST changes: +HYDR-4060 PO; +LIDO1ADH82 TP; +MELO-108 PO
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
[2025-05-14] MEDS: PROCHLORPERAZINE 10MG/2ML INJ IV ONE (06:47)
[2025-05-14] MEDS: 0.9%NACL 1000ML 1,000 ML IV ONE (06:48)
[2025-05-14 06:51] LABS: IMMATURE GRANULOCYTE ABSOLUTE 0.04 K/uL (0-1); NUCLEATED RED BLOOD CELLS 0.0 % (0.0-0.19); PLATELET COUNT (AUTO) 371 K/uL (130-400); RED BLOOD CELL COUNT(AUTO) 4.31 MIL/uL (4.50-6.20); RED CELL DISTRIBUTION WIDTH 13.5 % (11.0-15.5); WHITE BLOOD COUNT (AUTO) 11.8 K/uL (4.8-10.8)
--- NOTE | 2025-05-14 06:57 | NUR ---
UPON ENTERING THE ROOM TO ADMINISTER MEDICATION, ED RN NOTED PATIENT WAS UNABLE TO COMPLETE SENTENCES AND UNABLE TO STATE NAME AND DATE THEY WERE PREVIOUSLY ABLE TO. ED MD NOTIFIED. STROKE ALERT ACTIVATED.
[2025-05-14 06:59] LABS: CREATININE 1.3 mg/dL (0.5-1.3); GLOMERULAR FILTR. RATE CALC 59.0 mL/min (>90); GLUCOSE,RANDOM 121.0 mg/dL (70-105); SODIUM SERUM 129.0 mmol/L (136-145); UREA NITROGEN, BLOOD 17.0 mg/dL (7-18)
--- NOTE | 2025-05-14 07:00 | NUR ---
MEDICATIONS HELD AT THIS TIME PER ORDERED BY MD GARCIA.
--- NOTE | 2025-05-14 07:02 | NUR ---
PT LEFT TO CT AT THIS TIME
--- NOTE | 2025-05-14 07:03 | EKG ---
[facility] Test Date: 2025-05-14 Test Time: 06:58:46 Pat Name: JACQUELINE MONTOYA Department: [facility] Room: Gender: Bench Molder: [id number] : 1955 Requested By: AMAURY GARCIA Order Number: [id number] Reading MD: George Dao Measurements Intervals [place] Rate: 78 P: 69 CA: 180 QRS: 48 QRSD: 84 T: 16 QT: 418 QTc: 476 Interpretive Statements Sinus rhythm Compared to ECG 05/03/2025 14:50:26 Atrial premature complex(es) no longer present Electronically Signed On 05-15-2025 17:30:27 CDT by George Dao Please click the below link to view image of tracing.
--- NOTE | 2025-05-14 07:10 | NUR ---
PT BACK FROM CT AT THIS TIME
--- NOTE | 2025-05-14 07:15 | NUR ---
PER DR. Robles PT IS TO REMAIN NPO
--- NOTE | 2025-05-14 07:17 | NUR ---
REPORT GIVEN TO MEGAN AKBAR AT THIS TIME
--- NOTE | 2025-05-14 07:34 | HMCIMG ---
EXAM: Non-contrast CT examination of the Brain CLINICAL HISTORY: Right-sided headache. TECHNIQUE: Thin collimated axial CT images of the brain were obtained, with sagittal and coronal reformatted images also submitted. A CT scan is done according to ALARA (As Low as Reasonably Achievable). CONTRAST USED: None. COMPARISON: CT - CT HEAD/BRAIN W/CONTRAST 01/10/21 10:05 EDT FINDINGS: A large acute subdural hemorrhage measuring 11.4 x 7.4 x 1.8 cm in its anteroposterior, craniocaudal, and transverse dimensions, causing mild mass-effect on the right lateral ventricle and minimal midline shift towards left (2.7 mm). Subtle subdural hemorrhage along the falx cerebri and along the bilateral tentorium cerebelli, right more than left, and subarachnoid hemorrhage in the left sylvian fissure and left temporoparietal region. No evidence of intraparenchymal hematoma. Mild age-related degenerative change with prominent sulci and basilar cisterns. Diffuse hypoattenuation in the deep periventricular white matter and morales radiata sequela of chronic microvascular ischemic change. No acute intracranial abnormality is present. No acute cortical infarction, hemorrhage, mass, or mass effect. No hydrocephalus or abnormal extra-axial fluid collections. The posterior fossa is unremarkable. The skull base and calvarium are intact. Probable prior fracture of the right anterior zygomatic arch and roof of the right maxillary sinus with a reconstruction plate in the zygomatic arch and the roof of the right maxillary sinus. Mild volume loss of the right maxillary sinus. Hyperostosis of the ramus of the right mandible and right mid condylar hyperplasia. The remainder of the paranasal sinuses are clear. Deviated nasal septum towards the left. IMPRESSION: A large acute subdural hemorrhage measuring 11.4 x 7.4 x 1.8 cm in its anteroposterior, craniocaudal, and transverse dimensions, causing mild mass-effect on the right lateral ventricle and minimal midline shift towards left (2.7 mm). Subtle subdural hemorrhage along the falx cerebri and along the bilateral tentorium cerebelli, right more than left. Subarachnoid hemorrhage in the left sylvian fissure and left temporoparietal region. No evidence of intraparenchymal hematoma. Age-related degenerative change. Changes of chronic microvascular ischemic disease. No evidence of calvarial fracture. Compared to the prior study, there is interval development of a large acute subdural hemorrhage, aneurysmal subarachnoid hemorrhage in the left sylvian preserved and left temporoparietal region, and subdural hemorrhage along the falx cerebri and tentorium cerebelli as described above. /[place]
--- NOTE | 2025-05-14 08:28 | NUR ---
REPORT GIVEN TO RIA AT [facility], ER
--- NOTE | 2025-05-14 08:30 | HMCIMG ---
EXAM: CR Chest, 1 View om 2 radiographs. CLINICAL HISTORY: stroke COMPARISON: 04/08 12:58 EDT CR - CHEST 1VW FINDINGS: LUNGS: There is no mass, infiltrate, or acute pulmonary abnormality. PLEURAL SPACES: No evidence of pleural effusion or pneumothorax. MEDIASTINUM: The cardiomediastinal silhouette is within normal limits. BONES: No acute osseous abnormality. IMPRESSION: No acute cardiopulmonary pathology is evident. /[place]
[2025-05-14 09:00] VITALS: TEMP 96.1
[2025-05-14 09:30] VITALS: BP 162/83; PULSE 72; RESP 19; O2SAT 98
== END 2025-05-14 09:35 | disposition short-term general hospital (02) ==
LOC: EDH 06:19
DX: S06.5XAA Traumatic subdural hemorrhage with loss of consciousness status unknown, initial encounter (principal); Z79.899 Other long term (current) drug therapy; V89.2XXA Person injured in unspecified motor-vehicle accident, traffic, initial encounter; Y93.89 Activity, other specified; Y92.89 Other specified places as the place of occurrence of the external cause; Y99.8 Other external cause status
CPT/HCPCS: 99291; 96374; 70450; 96375; 96361; 80048; 85025; 82948; 36415; 71045; 93005; J1200; J3010; J7030 ×2; J3490; J0780; J2405; J7050